=== PATIENT | male | born 1965 | race Caucasian/White ===

== ENCOUNTER 2016-12-14 09:20 | Emergency (ER) | payer OTHER ==
[~2016-12-14] VITALS: Ht 165.1 cm; Wt 83.9 kg
[2016-12-14] MEDS ORDERED: ALEVE220 M1 PO (09:42)
[2016-12-14] MEDS ORDERED: CYCLOBENZAPRINE10 MG PO (10:09)
[2016-12-14] MEDS ORDERED: NORCO 5-325 TA1 EACH PO (10:09)
== END 2016-12-14 10:29 | disposition home or self-care (01) ==
LOC: ED 09:20
DX: M54.42 Lumbago with sciatica, left side (principal); I10 Essential (primary) hypertension; F17.200 Nicotine dependence, unspecified, uncomplicated; Z88.1 Allergy status to other antibiotic agents; Z79.899 Other long term (current) drug therapy
CPT/HCPCS: 99283